=== PATIENT | male | born 1945 | race Caucasian/White ===

== ENCOUNTER 2019-11-13 11:02 | Emergency (ER) | payer MEDICARE, MEDICAID ==
[~2019-11-13] VITALS: Ht 175.3 cm; Wt 50.0 kg
[2019-11-13 11:06] VITALS: BP 169/106
[2019-11-13] MEDS ORDERED: CEPH500C5 PO ×2 (12:00→12:02)
== END 2019-11-13 12:09 | disposition home or self-care (01) ==
LOC: ER 11:02
DX: R68.84 Jaw pain (principal); K08.89 Other specified disorders of teeth and supporting structures; J43.9 Emphysema, unspecified; Z79.2 Long term (current) use of antibiotics
CPT/HCPCS: 99283

== ENCOUNTER 2021-08-01 02:44 | Emergency (ER) | payer MEDICARE, MEDICAID ==
[~2021-08-01] VITALS: Ht 177.8 cm; Wt 59.1 kg
[2021-08-01 03:01] VITALS: BP 144/81
== END 2021-08-01 09:33 | disposition left against medical advice (07) ==
LOC: ER 02:44
DX: R06.02 Shortness of breath (principal); Z53.21 Procedure and treatment not carried out due to patient leaving prior to being seen by health care provider

== ENCOUNTER 2022-03-22 06:28 | Emergency (ER) | payer MEDICARE, MEDICAID ==
[~2022-03-22] VITALS: Ht 175.3 cm; Wt 56.8 kg
[2022-03-22 06:55] VITALS: BP 137/82
== END 2022-03-22 08:35 | disposition home or self-care (01) ==
LOC: ER 06:29
DX: S60.212A Contusion of left wrist, initial encounter (principal); S40.012A Contusion of left shoulder, initial encounter; S63.502A Unspecified sprain of left wrist, initial encounter; J43.9 Emphysema, unspecified; Z72.89 Other problems related to lifestyle; W19.XXXA Unspecified fall, initial encounter; Y93.89 Activity, other specified; Y92.89 Other specified places as the place of occurrence of the external cause; Y99.8 Other external cause status
CPT/HCPCS: 73130; 99283; 99284